=== PATIENT | male | born 1945 | race Caucasian/White ===

== ENCOUNTER 2017-04-08 12:28 | Emergency (ER) | payer MEDICARE, OTHER ==
[~2017-04-08] VITALS: Wt 90.0 kg
[~2017-04-08 12:28] MED LIST: ATOR80TA75 PO; CALC667T2 PO; DOCU-144 PO; DONE5TAB46 PO; FER325 PO; GABA100C14 PO; HYDR-3498 PO; KETO5DRO79 OP; LACT10SO5 PO; LOSA50TA6 PO; METO-335 PO; OXYC-281 PO; POLY17PO6 PO; SITA50TA2 PO; TERA2CAP3 PO
[2017-04-08 15:55] VITALS: TEMP 98.4
[2017-04-08] MEDS ORDERED: ONDANSETRON 4 MG INJ IV STA (17:41)
[2017-04-08] MEDS ORDERED: HYDROmorphONE 1 MG/ML SYG IV STA (17:41)
--- NOTE | 2017-04-08 17:46 | ERD ---
ER Documentation Chief Complaint Chief Complaint CONSTIPATION X3 WEEKS, PREVIOUS KNEE SURGERY, C/O ABD PAIN HPI This is a 71-year-old male with a known history of end-stage renal disease on hemodialysis every Friday and Friday and status post left knee total replacement performed 3 weeks ago at [facility] by Dr. Keyona Cooney. The patient indicates he has been taking Mystic for analgesia control and Colace for stool softeners. He indicates however that he has been experiencing constipation since the surgery. He denies any abdominal pain. He has had no fevers or shaking or chills. He indicates the sutures were removed 5 days ago and since that time he has been having significant pain around the incision site and left calf with no swelling. He denies any shortness of breath at rest or exertion. He denies any chest pain or pressure that radiates the neck arm back or jaw. He has no back pain ROS All systems reviewed and are negative except as per history of present illness. Medications Home Meds Active Scripts Mineral Oil* (Fleet* Mineral Oil Enema) 133 Ml Oil, 133 ML [place] NEEDED Y for CONSTIPATION, #10 ENEMA Prov:ALONDRA UNDERWOOD 04/08/17 Hydrocodone Bit-Acetaminophen* (Mystic*) 5-325 Mg Tab, 1 TAB PO Q6 Y for PAIN, # 14 TAB Prov:DENISE JAY PA-C 05/17/15 Reported Medications Pantoprazole* (Pantoprazole*) 40 Mg Tablet.dr, 40 MG PO AC BREAKFAST, TAB 04/08/17 Isoniazid* (Isoniazid*) 300 Mg Tablet, 300 MG PO DAILY, TAB 04/08/17 Nabumetone* (Nabumetone*) 500 Mg Tablet, 500 MG PO BID, TAB 04/08/17 Pregabalin* (Lyrica*) 50 Mg Capsule, 50 MG PO QHS, CAP 04/08/17 Bisacodyl* (Bisacodyl*) 5 Mg Tablet.dr, 10 MG PO DAILY Y for CONSTIPATION, TAB 04/08/17 Pyridoxine Hcl* (Vitamin B-6*) 50 Mg Capsule, 50 MG PO DAILY, CAP 04/08/17 Docusate Sodium* (Docusate Sodium*) 100 Mg Capsule, 100 MG PO DAILY, #30 CAP 04/08/17 Atorvastatin* (Atorvastatin*) 80 Mg Tablet, 80 MG PO QHS 04/17/13 Ferrous Sulfate* (Ferrous Sulfate*) 325 Mg Tabec, 325 MG PO BID 04/17/13 Calcium Acetate (Calphron) 667 Mg Tablet, 3 CAP PO TID 04/17/13 Discontinued Reported Medications Lactulose* (Lactulose*) 10 Gm/15 Ml Solution, 10 GM PO DAILY 04/17/13 Gabapentin* (Gabapentin*) 100 Mg Capsule, 100 MG PO BID 04/17/13 Losartan Potassium* (Losartan Potassium*) 50 Mg Tablet, 50 MG PO DAILY 04/17/13 Donepezil* (Aricept*) 5 Mg Tablet, 5 MG PO DAILY 04/17/13 Sitagliptin* (Januvia*) 50 Mg Tablet, 50 MG PO DAILY 04/17/13 Ketorolac Tromethamine Oph (Ketorolac Tromethamine Oph) 5 Ml Drops, 5 ML OP DAILY 04/17/13 Terazosin Hcl* (Terazosin Hcl*) 2 Mg Capsule, 2 MG PO DAILY 04/17/13 Metoprolol Succinate* (Toprol XL*) 25 Mg Tab.sr.24h, 25 MG PO DAILY 04/17/13 Discontinued Scripts Oxycodone Hcl-Acetaminophen* (Percocet*) 5-325 Mg Tablet, 1 TAB PO TID Y for PAIN, #12 TAB Prov:KEYONA CHRISTOPHER MD 01/23/15 Docusate Sodium* (Colace*) 100 Mg Capsule, 100 MG PO BID for CONSTIPATION, #30 Prov:KEYONA CHRISTOPHER MD 01/23/15 Polyethylene Glycol* (Miralax*) 17 Gm Powd.pack, 17 GM PO DAILY for CONSTIPATION , #7 Prov:KEYONA CHRISTOPHER MD 01/23/15 Allergies Allergies: Coded Allergies: No Known Allergies (Verified Allergy, Unknown, 04/08/17) PMhx/Soc History of Surgery: Yes (eye, fistula to R forearm, abd. and testicular sx ( does not know procedure)) Anesthesia Reaction: No Hx Neurological Disorder: No Hx Respiratory Disorders: No Hx Cardiac Disorders: No (HTN) Hx Psychiatric Problems: No Hx Miscellaneous Medical Probl: Yes (DM, ESRD, high cholesterol, LEFT KNEE REPLACEMENT (03/2017)) Hx Alcohol Use: No Hx Substance Use: No Hx Tobacco Use: No Smoking Status: Never smoker Physical Exam Vitals Vital Signs Date Time Temp Pulse Resp B/P Pulse Ox O2 Delivery O2 Flow Rate FiO2 04/08/17 15:55 98.4 62 18 146/82 100 Room Air 04/08/17 12:32 99.0 65 17 156/79 96 Physical Exam Constitutional:Well-developed. Well-nourished. HEENT:Normocephalic. Atraumatic.Pupils were equal round reactive to light. Moist mucous membranes.No tonsillar exudates. Neck: No nuchal rigidity. No lymphadenopathy. No posterior cervical spine tenderness or step-offs. Respiratory: Not using accessory muscles of respiration.Lungs were clear to auscultation bilaterally. No rhonchi. No rales. No wheezing. Cardiovascular: Regular rate regular rhythm.No murmurs. No rubs were appreciated.S1, S2 normal. Distal pulses are palpable 2+ bilaterally. GI: Abdomen was soft. Nontender. Non Distended. No pulsatile abdominal masses or bruits. No rebound. No guarding. Bowel sounds were present and normal. Muscle skeletal: Full range of motion of both the upper extremities. Valgus and varus stress testing was not able to be obtained of the left knee due to recent surgical intervention. Normal muscle tone. Left calf tenderness with no swelling. Skin: No petechia, no purpura. No lesions on the palms or the soles of the feet. No maculopapular rash. Positive thrill and bruit of the right upper extremity AV fistula. Surgical incision site over the anterior aspect of the left knee is clean dry and intact with no wound dehiscence. No erythremia warmth fluctuance or induration over the left anterior knee surgical site. NEURO: Patient was alert, awake, orientated x3.No facial droop. Gait observed and normal with no ataxia.Speech had regular rate and rhythm. No focal neurological deficits. Result Diagram: 04/08/17181204/08/171812 Results 24 hrs Laboratory Tests Test 04/08/17 18:13 White Blood Count 7.810^3/ul Red Blood Count 3.4410^6/ul Hemoglobin 10.0g/dl Hematocrit 31.7% Mean Corpuscular Volume 92.2fl Mean Corpuscular Hemoglobin 29.1pg Mean Corpuscular Hemoglobin Concent 31.5g/dl Red Cell Distribution Width 14.6% Platelet Count 97465^3/UL Mean Platelet Volume 9.7fl Neutrophils % 67.7% Lymphocytes % 19.1% Monocytes % 9.9% Eosinophils % 2.1% Basophils % 0.8% Nucleated Red Blood Cells % 0.0/100WBC Neutrophils # 5.310^3/ul Lymphocytes # 1.510^3/ul Monocytes # 0.810^3/ul Eosinophils # 0.210^3/ul Basophils # 0.110^3/ul Nucleated Red Blood Cells # 0.010^3/ul Sodium Level 141mmol/L Potassium Level 4.1mmol/L Chloride Level 97mmol/L Carbon Dioxide Level 27mmol/L Anion Gap 21 Blood Urea Nitrogen 39mg/dl Creatinine 8.15mg/dl Glucose Level 100mg/dl Calcium Level 8.3mg/dl Total Bilirubin 0.2mg/dl Direct Bilirubin 0.00mg/dl Indirect Bilirubin 0.2mg/dl Aspartate Amino Transf (AST/SGOT) 30IU/L Alanine Aminotransferase (ALT/SGPT) 27IU/L Alkaline Phosphatase 80IU/L Total Protein 7.3g/dl Albumin 3.7g/dl Globulin 3.60g/dl Albumin/Globulin Ratio 1.02 Current Medications Medications (Trade) Dose Ordered Sig/[place] Route PRN Reason Start Time Stop Time Status Last Admin Dose Admin Hydromorphone HCl (Dilaudid) 1 mg ONCE STAT IV 04/08/17 17:41 04/08/17 17:43 DC 04/08/17 18:51 Ondansetron HCl (Zofran Inj) 4 mg ONCE STAT IV 04/08/17 17:41 04/08/17 17:43 DC 04/08/17 18:51 Magnesium Hydroxide (Milk Of Mag) 30 ml ONCE ONCE PO 04/08/17 18:00 04/08/17 18:01 DC Procedures/MDM This is a very pleasant 71-year-old male that returns to the emergency department to be further evaluated after a knee replacement several weeks ago. There is no signs of wound dehiscence. The patient had no signs of overlying cellulitis. I obtained a venous duplex ultrasound which showed no evidence of a deep vein thrombosis. The patient has a history of end-stage renal disease and his potassium was within normal limits. He has received dialysis first thing in the morning. There is no evidence of hypoglycemia. I did feel the patient's constipation was medication induced from his Mystic. He received milk of magnesium in the emergency department and was instructed to continue to take his Colace. The patient was discharged home in fair condition. They were instructed to return to the emergency department at any time if there was any worsening of their condition. The patient stated they would follow up with their PCP in the next 24-48 hours to initiate a suitable medication regimen under the care of their PCP as well as to allow their PCP to monitor any drug reactions. The patient was discharged home with prescriptions after they gave informed consent to the new medication. They were also fully informed by myself on the adverse effects and adverse drug interactions in order to provide adequate safeguards to prevent possible adverse reactions to medications. Departure Diagnosis: Primary Impression: Post-op pain Additional Impression: Constipation due to pain medication therapy Condition: ALONDRA Ribeiro Apr 08, 2017 17:46
[2017-04-08] MEDS ORDERED: MAGNESIUM HYDROXIDE 30ML CUP PO ONE (18:00)
--- NOTE | 2017-04-08 18:09 | RADRPT ---
PROCEDURE: ULTRASOUND OF THE LEFT LOWER EXTREMITY VENOUS SYSTEM WITH DOPPLER CLINICAL INDICATION: 71 years of age, male. Calf tenderness. Postop knee replacement 3 weeks ago. TECHNIQUE: Real-time longitudinal and transverse sonographic morrow scale imaging with and without com pression, as well as color and duplex Doppler imaging before and after augmentation, was obtained of the deep system of the left lower extremity, including the common femoral, femoral, popliteal, pos terior tibial, and peroneal veins. COMPARISON: None available. FINDINGS: Left common femoral vein: No evidence of thrombus. Left femoral vein: No evidence of thrombus. Left popliteal vein: No evidence of thrombus. Left calf veins: Patent where visualized. Additional comment: None. IMPRESSION: Negative for ultrasound evidence of deep venous thrombosis in the left lower extremity. RPTAT: HCTS Physician Sang Date Time Electronically viewed and signed by Genesis Mojica Physician on 04/08/2017 18:09 /
[2017-04-08 18:22] LABS: BASOPHIL # 0.1 10^3/ul (0.0-0.1); BASOPHILS % 0.8 % (0.0-2.0); EOSINOPHILS # 0.2 10^3/ul (0.0-0.5); EOSINOPHILS % 2.1 % (0.0-7.0); HEMATOCRIT 31.7 % (42.0-52.0); LYMPHOCYTES # 1.5 10^3/ul (0.8-2.9); LYMPHOCYTES % 19.1 % (15.0-51.0); MEAN CORPUSCULAR HEMOGLOBIN 29.1 pg (29.0-33.0); MEAN CORPUSCULAR HGB CONC 31.5 g/dl (32.0-37.0); MEAN CORPUSCULAR VOLUME 92.2 fl (82.0-101.0); MEAN PLATELET VOLUME 9.7 fl (7.4-10.4); MONOCYTE # 0.8 10^3/ul (0.3-0.9); MONOCYTES % 9.9 % (0.0-11.0); NEUTROPHIL # 5.3 10^3/ul (1.6-7.5); NEUTROPHILS % 67.7 % (39.0-77.0); PLATELET COUNT 470 10^3/UL (140-415); RED BLOOD COUNT 3.44 10^6/ul (4.70-6.10); RED CELL DISTRIBUTION WIDTH 14.6 % (11.5-14.5); WHITE BLOOD COUNT 7.8 10^3/ul (4.8-10.8)
[2017-04-08] MEDS ORDERED: DOCU-159 PO (18:39)
[2017-04-08] MEDS ORDERED: BISA5TAB6 PO (18:40)
[2017-04-08] MEDS ORDERED: PYRI50CA PO (18:40)
[2017-04-08] MEDS ORDERED: PREG50CA PO (18:43)
[2017-04-08] MEDS ORDERED: NABU-81 PO (18:43)
[2017-04-08] MEDS ORDERED: ISON300T72 PO (18:44)
[2017-04-08] MEDS ORDERED: PANT40TA4 PO (18:45)
[2017-04-08 19:01] LABS: ALBUMIN 3.7 g/dl (3.3-4.9); ALBUMIN/GLOBULIN RATIO 1.02; BILIRUBIN,INDIRECT 0.2 mg/dl (0-1.1); BILIRUBIN,TOTAL 0.2 mg/dl (0.2-1.3); CALCIUM 8.3 mg/dl (8.4-10.2); CREATININE 8.15 mg/dl (0.61-1.24); POTASSIUM 4.1 mmol/L (3.5-5.1); TOTAL PROTEIN 7.3 g/dl (6.1-8.1)
[2017-04-08] MEDS ORDERED: MINE133E23 PR (19:03)
[2017-04-08 21:09] VITALS: BP 160/91; PULSE 71; RESP 16
== END 2017-04-08 21:13 | disposition home or self-care (01) ==
LOC: E/R 12:28
DX: G89.18 Other acute postprocedural pain (principal); K59.03 Drug induced constipation; M25.562 Pain in left knee; I12.0 Hypertensive chronic kidney disease with stage 5 chronic kidney disease or end stage renal disease; N18.6 End stage renal disease; E11.22 Type 2 diabetes mellitus with diabetic chronic kidney disease; Z99.2 Dependence on renal dialysis; Z96.652 Presence of left artificial knee joint
CPT/HCPCS: 80053; 85025; 93971; 96374; 96375; 99284; J1170; J2405

== ENCOUNTER 2018-11-23 13:17 | Emergency (ER) | payer MEDICARE, MEDICAID ==
[~2018-11-23] VITALS: Ht 172.7 cm; Wt 86.5 kg
[~2018-11-23 13:17] MED LIST changes: +ACET500C5 PO; +ATOR-2 PO; -ATOR80TA75 PO; +BISA5TAB6 PO; +CEPH-443 PO; -DOCU-144 PO; +DOCU-159 PO; -DONE5TAB46 PO; -GABA100C14 PO; +ISON300T18 PO; -KETO5DRO79 OP; -LACT10SO5 PO; -LOSA50TA6 PO; -METO-335 PO; +MINE133E23 PR; +NABU-81 PO; +NEOM28OI2 TP; -OXYC-281 PO; +PANT40TA4 PO; -POLY17PO6 PO; +PREG50CA PO; +PYRI50CA PO; -SITA50TA2 PO; -TERA2CAP3 PO
[2018-11-23 13:22] VITALS: Ht 172.7 cm; Wt 86.5 kg
[2018-11-23] MEDS ORDERED: BACITRACIN 0.9 GM OINT TOP ONE (17:00)
[2018-11-23 17:22] VITALS: BP 134/62; PULSE 70; RESP 18
[2018-11-23] MEDS ORDERED: BACITRACIN 0.5%/ZINC 28.35 GM OINT TOP ONE (17:30)
== END 2018-11-23 17:43 | disposition home or self-care (01) ==
LOC: FTE 13:17
DX: L02.212 Cutaneous abscess of back [any part, except buttock and flank] (principal); I12.0 Hypertensive chronic kidney disease with stage 5 chronic kidney disease or end stage renal disease; N18.6 End stage renal disease; E11.22 Type 2 diabetes mellitus with diabetic chronic kidney disease; Z96.652 Presence of left artificial knee joint; Z99.2 Dependence on renal dialysis